=== PATIENT | male | born 1950 | race Caucasian/White ===

== ENCOUNTER 2019-01-19 12:38 | Outpatient (CLI) | payer MEDICARE ==
--- NOTE | 2019-01-19 12:57 | RAD ---
2 views chest. HISTORY: Patient with history of soft palate cancer status post chemotherapy. PA and lateral views of the chest is obtained. The lungs are well aerated. No evidence of active intrathoracic disease seen. No evidence of effusion s, pneumonia or pneumothorax seen. IMPRESSION: unremarkable 2 views chest.
== END 2019-01-19 12:39 | disposition home or self-care (01) ==
LOC: RAD 12:38
PROVIDERS: ATTEND Radiology Radiation Oncology
DX: Z08 Encounter for follow-up examination after completed treatment for malignant neoplasm (principal); Z85.818 Personal history of malignant neoplasm of other sites of lip, oral cavity, and pharynx; Z92.3 Personal history of irradiation; Z92.21 Personal history of antineoplastic chemotherapy
CPT/HCPCS: 71046; 84443

== ENCOUNTER 2021-02-14 10:37 | Outpatient (CLI) | payer MEDICARE | END 2021-02-14 10:38 | disposition home or self-care (01) | LOC: RAD 10:37 | PROVIDERS: ATTEND Psychologist Addiction (Substance Use Disorder) | DX: C05.1 Malignant neoplasm of soft palate (principal); Z92.21 Personal history of antineoplastic chemotherapy | CPT/HCPCS: 71046 ==

== ENCOUNTER 2022-02-14 08:00 | Outpatient (CLI) | payer MEDICARE | END 2022-02-14 08:01 | disposition home or self-care (01) | LOC: RAD 08:00 | PROVIDERS: ATTEND Radiology Radiation Oncology | DX: C05.1 Malignant neoplasm of soft palate (principal); N13.30 Unspecified hydronephrosis; N13.4 Hydroureter; N32.89 Other specified disorders of bladder | CPT/HCPCS: 71250; 74176 ==

== ENCOUNTER 2022-02-14 13:16 | Inpatient (IN) | payer MEDICARE ==
[2022-02-14 14:35] LABS: #Eosinphils 0.1 thou/uL (0.0-0.7); #Lymphocytes 1.9 thou/uL (1.20-3.40); #Monocytes 0.4 thou/uL (0.11-0.59); #Neutrophils 3.7 thou/uL (1.40-6.50); %Basophils 0.4 % (0.0-1.0); %Eosinophils 1.4 % (0.0-10.0); %Lymphocytes 31.6 % (21.0-51.0); %Monocytes 6.6 % (0.0-10.0); Mean Corpuscular HGB CONC 32.9 g/dL (32.0-36.0); Mean Corpuscular Hemoglobin 32.7 pg (27.0-31.0); Mean Corpuscular Volume 99.3 fL (78.0-98.0); Mean Platelet Volume 7.4 fL (7.4-10.4); Platelet Count 290 thou/uL (130-400); RBC Distribution Width 11.8 % (11.5-14.5); Red Blood Cell (RBC) Count 3.97 mill/uL (4.70-6.10); White Blood Cell (WBC) Count 6.1 thou/uL (4.8-10.8)
[2022-02-14 14:40] LABS: Bilirubin Negative (Negative); Blood, Urine Negative (Negative); Clarity Clear (Clear); Glucose, Urine (Dipstick) Normal (Negative); Ketone, Urine Negative (Negative); Leukocyte Negative Leu/uL (Negative); Nitrite Negative (Negative); Protein, Urine (Dipstick) 10 mg/dL (Neg-Trace); Specific Gravity, Urine 1.019 (1.002-1.036); Urobilinogen Normal mg/dL (Less than 2)
[2022-02-14 15:01] LABS: ALT (SGPT) 10 U/L (8-55); AST (SGOT) 15 U/L (5-34); Albumin 4.4 g/dL (3.4-4.8); Alkaline Phosphatase 41 U/L (40-110); Anion Gap 18 mmol/L (10-20); BUN (Urea Nitrogen) 26 mg/dL (8.4-25.7); Bilirubin, Total 0.6 mg/dL (0.2-1.2); Calc. Creatinine Clearance 0 mL/min (70-130); Calcium 9.4 mg/dL (7.8-10.44); Carbon Dioxide 27 mmol/L (23-31); Chloride 101 mmol/L (98-107); Globulin 2.7 g/dL (2.4-3.5); Glucose 97 mg/dL (80-115); Potassium 4.4 mmol/L (3.5-5.1); Protein, Total 7.1 g/dL (5.8-8.1); Sodium 142 mmol/L (136-145)
[2022-02-14] MEDS ORDERED: hydrALAZINE 20 MG/ML VIAL ONE (15:09)
[2022-02-14] MEDS ORDERED: Ondansetron ODT 4 MG TAB PO PRN (16:03)
[2022-02-14] MEDS ORDERED: Senokot S 8.6-50 MG TAB PO PRN (16:03)
[2022-02-14] MEDS ORDERED: Acetaminophen 650 MG Suppository PR PRN (16:03)
[2022-02-14] MEDS ORDERED: Artificial Tear Sol 15 ML BOT EA EYE PRN (16:03)
[2022-02-14] MEDS ORDERED: Ondansetron PF 4 MG/2 ML Vial IVP PRN (16:03)
[2022-02-14] MEDS ORDERED: hydrALAZINE 20 MG/ML VIAL SLOW IVP PRN (16:03)
[2022-02-14] MEDS ORDERED: Moisturizing Cream (Eucerin) 113 GM JAR TOP PRN (16:03)
[2022-02-14] MEDS ORDERED: Calcium Carbonate 500 MG ChewTAB PO PRN (16:03)
[2022-02-14] MEDS ORDERED: Labetalol HCl 100 MG/20 ML VIAL SLOW IVP PRN (16:03)
[2022-02-14] MEDS ORDERED: Amlodipine 10 MG TAB PO SCH (16:15)
[2022-02-14] MEDS ORDERED: Aspirin 325 MG TAB PO SCH (17:15)
[2022-02-14 17:35] LABS: Creatinine, Urine 95.76 mg/dL (63-166)
[2022-02-14] MEDS ORDERED: cloNIDine 0.3mg/24 Hour PATCH TD SCH (17:45)
[2022-02-14] MEDS: Sodium Chloride 0.45% 1,000 ML IV SCH (17:58)
[2022-02-14] MEDS: Acetaminophen 325 MG TAB PO PRN (17:59)
[2022-02-14] MEDS ORDERED: Polyethylene Glycol 3350 17 GM Packet PO SCH (18:00)
[2022-02-14 20:02] VITALS: BMI 21.5
[2022-02-14] MEDS: Labetalol HCl 100 MG TAB PO SCH (20:43)
[2022-02-14 20:54] LABS: Troponin I 0.036 ng/mL (< 0.028)
[2022-02-14] MEDS: Benzonatate 100 MG CAP PO PRN (22:36)
[2022-02-15] MEDS: Acetaminophen 325 MG TAB PO PRN ×2 (01:42→20:54)
[2022-02-15] MEDS: hydrOXYzine 25 MG TAB PO PRN ×2 (01:44→20:54)
[2022-02-15] MEDS: Sodium Chloride 0.45% 1,000 ML IV SCH ×2 (05:08→16:49)
[2022-02-15 06:09] LABS: Anion Gap 16 mmol/L (10-20); BUN (Urea Nitrogen) 20 mg/dL (8.4-25.7); Calc. Creatinine Clearance 43 mL/min (70-130); Calcium 9.4 mg/dL (7.8-10.44); Carbon Dioxide 23 mmol/L (23-31); Cardiac Risk 3.3 (Less than 4.5); Chloride 103 mmol/L (98-107); Cholesterol 191 mg/dl (< 200 Desired); Glucose 100 mg/dL (80-115); HDL Cholesterol 58 mg/dL (>60 Neg Risk); LDL Cholesterol, Calculated 118 mg/dL; Magnesium 1.6 mg/dL (1.6-2.6); Potassium 4.1 mmol/L (3.5-5.1); Sodium 138 mmol/L (136-145); Triglycerides 73 mg/dL (Less than 150)
[2022-02-15 06:14] LABS: Iron 45 ug/dL (65-175); Iron Binding Capacity, Total 220 mcg/dL (261-462); Phosphorus 3.5 mg/dL (2.3-4.7)
[2022-02-15 06:15] LABS: Iron 45 ug/dL (65-175); Iron Binding Capacity, Total 224 mcg/dL (261-462)
[2022-02-15] MEDS: Labetalol HCl 100 MG TAB PO SCH (08:53)
[2022-02-15] MEDS: Ferrous Sulfate 325 MG TAB PO SCH (08:53)
[2022-02-15] MEDS: NIFEdipine XL 60 MG TAB PO SCH ×2 (08:55→20:51)
[2022-02-15] MEDS: Aspirin Chewable 81 MG TAB PO SCH (08:55)
[2022-02-15] MEDS: Folic Acid 1 MG TAB PO SCH (08:55)
[2022-02-15] MEDS: Polyethylene Glycol 3350 17 GM Packet PO SCH (08:57)
[2022-02-15] MEDS ORDERED: Amlodipine 10 MG TAB PO SCH (09:00)
[2022-02-15 12:22] LABS: SARS-CoV-2 PCR by NAA Not Detected (NotDetected)
[2022-02-15] MEDS ORDERED: cloNIDine 0.1 MG TAB PO SCH (15:00)
[2022-02-15] MEDS: Benzonatate 100 MG CAP PO PRN (15:00)
[2022-02-15] MEDS ORDERED: Atorvastatin Calcium 10 MG TAB PO SCH (21:00)
[2022-02-16] MEDS: Sodium Chloride 0.45% 1,000 ML IV SCH (01:20)
[2022-02-16] MEDS: Cepastat Lozenges 1 LOZ PO PRN ×2 (01:43→08:52)
[2022-02-16] MEDS ORDERED: Levothyroxine Sodium 100 MCG TAB PO SCH (06:00)
[2022-02-16 08:00] LABS: #Eosinphils 0.2 thou/uL (0.0-0.7); #Lymphocytes 1.4 thou/uL (1.20-3.40); #Monocytes 0.4 thou/uL (0.11-0.59); #Neutrophils 8.3 thou/uL (1.40-6.50); %Basophils 0.2 % (0.0-1.0); %Eosinophils 1.6 % (0.0-10.0); %Lymphocytes 13.2 % (21.0-51.0); %Monocytes 4.2 % (0.0-10.0); %Neutrophils 80.8 % (42.0-75.0); Hemoglobin 13.6 g/dL (14.0-18.0); Mean Corpuscular HGB CONC 33.2 g/dL (32.0-36.0); Mean Corpuscular Hemoglobin 32.8 pg (27.0-31.0); Mean Platelet Volume 7.3 fL (7.4-10.4); Platelet Count 283 thou/uL (130-400); RBC Distribution Width 11.9 % (11.5-14.5); Red Blood Cell (RBC) Count 4.15 mill/uL (4.70-6.10); White Blood Cell (WBC) Count 10.2 thou/uL (4.8-10.8)
[2022-02-16 08:21] LABS: ALT (SGPT) 8 U/L (8-55); AST (SGOT) 13 U/L (5-34); Albumin 3.9 g/dL (3.4-4.8); Alkaline Phosphatase 37 U/L (40-110); Anion Gap 13 mmol/L (10-20); BUN (Urea Nitrogen) 18 mg/dL (8.4-25.7); Bilirubin, Total 0.7 mg/dL (0.2-1.2); Calc. Creatinine Clearance 46 mL/min (70-130); Carbon Dioxide 22 mmol/L (23-31); Chloride 105 mmol/L (98-107); Globulin 2.8 g/dL (2.4-3.5); Glucose 105 mg/dL (80-115); Potassium 3.9 mmol/L (3.5-5.1); Protein, Total 6.7 g/dL (5.8-8.1); Sodium 136 mmol/L (136-145)
[2022-02-16] MEDS: Ferrous Sulfate 325 MG TAB PO SCH (08:49)
[2022-02-16] MEDS: Aspirin Chewable 81 MG TAB PO SCH (08:49)
[2022-02-16] MEDS: Folic Acid 1 MG TAB PO SCH (08:51)
[2022-02-16] MEDS ORDERED: Sodium Bicarbonate Tab 325 MG TAB PO SCH (09:00)
[2022-02-16] MEDS ORDERED: Labetalol HCl 100 MG TAB PO SCH (09:00)
[2022-02-16] MEDS ORDERED: cloNIDine 0.3mg/24 Hour PATCH TD SCH (09:00)
[2022-02-16] MEDS ORDERED: Amlodipine 10 MG TAB PO SCH (09:00)
[2022-02-16] MEDS: Polyethylene Glycol 3350 17 GM Packet PO SCH (09:02)
[2022-02-16 11:17] VITALS: BP 136/76; TEMP 98
[2022-02-21] MEDS ORDERED: cloNIDine 0.3mg/24 Hour PATCH TD SCH (18:00)
== END 2022-02-16 14:51 | disposition home or self-care (01) | DRG 683 ==
LOC: ERS 13:16 → 2SW 16:06 → OBSVTOIN 17:09
PROVIDERS: ADMIT Family Medicine; ATTEND Family Medicine
DX: N17.9 Acute kidney failure, unspecified (principal); I13.0 Hypertensive heart and chronic kidney disease with heart failure and stage 1 through stage 4 chronic kidney disease, or unspecified chronic kidney disease; I50.30 Unspecified diastolic (congestive) heart failure; N13.30 Unspecified hydronephrosis; I16.0 Hypertensive urgency; I95.2 Hypotension due to drugs; R94.31 Abnormal electrocardiogram [ECG] [EKG]; T50.905A Adverse effect of unspecified drugs, medicaments and biological substances, initial encounter; D50.9 Iron deficiency anemia, unspecified; D53.9 Nutritional anemia, unspecified; R00.0 Tachycardia, unspecified; N18.9 Chronic kidney disease, unspecified; I08.3 Combined rheumatic disorders of mitral, aortic and tricuspid valves; N32.0 Bladder-neck obstruction; F41.9 Anxiety disorder, unspecified; N40.1 Benign prostatic hyperplasia with lower urinary tract symptoms; R33.8 Other retention of urine; D52.9 Folate deficiency anemia, unspecified; R13.10 Dysphagia, unspecified; E03.9 Hypothyroidism, unspecified; Z20.822 Contact with and (suspected) exposure to COVID-19; Z79.890 Hormone replacement therapy; Z79.82 Long term (current) use of aspirin; Z79.899 Other long term (current) drug therapy; Z85.89 Personal history of malignant neoplasm of other organs and systems; Z92.21 Personal history of antineoplastic chemotherapy; Z92.3 Personal history of irradiation; Z98.890 Other specified postprocedural states; Z82.49 Family history of ischemic heart disease and other diseases of the circulatory system; Z87.891 Personal history of nicotine dependence
CPT/HCPCS: 36415; 36416; 51702; 76770; 80048; 80053; 80061; 81003; 82570; 82607; 82746; 83540; 83550; 83735; 84100; 84156; 84300; 84443; 84484; 84540; 85025; 93005; 93010; 93306; 94760; 96374; J0360; U0003; U0005

== ENCOUNTER 2022-03-20 18:51 | Outpatient (CLI) | payer MEDICARE, OTHER | END 2022-03-20 18:52 | disposition home or self-care (01) | LOC: LABBT 18:51 | PROVIDERS: ATTEND Urology | DX: N40.1 Benign prostatic hyperplasia with lower urinary tract symptoms (principal); Z20.822 Contact with and (suspected) exposure to COVID-19 | CPT/HCPCS: U0003; U0005 ==

== ENCOUNTER 2022-03-23 08:52 | Day surgery (SDC) | payer MEDICARE, OTHER ==
[2022-03-21 09:05] VITALS: BMI 21.3
[2022-03-23] MEDS ORDERED: Levofloxacin 500 mg/D5W 100 ml Premix Bag ONE (10:46)
[2022-03-23] MEDS ORDERED: Lidocaine 1% MPF 2 ML VIAL ONE (10:46)
[2022-03-23] MEDS ORDERED: Famotidine/PF 20 mg/2ml Vial ONE (11:45)
[2022-03-23] MEDS ORDERED: SUGAMMADEX SODIUM 200 MG/2 ML VIAL ONE (11:45)
[2022-03-23] MEDS ORDERED: fentaNYL Citrate/PF 100 MCG/2 ML SYRINGE ONE (11:45)
[2022-03-23] MEDS ORDERED: Ketorolac Tromethamine 30 MG/ML VIAL ONE (13:31)
[2022-03-23] MEDS ORDERED: Oxybutynin 5 MG TAB ONE (13:32)
[2022-03-23] MEDS ORDERED: Phenazopyridine HCl 100 MG TAB ONE (13:32)
== END 2022-03-23 15:01 | disposition home or self-care (01) ==
LOC: SDC 08:52
PROVIDERS: ATTEND Urology
PROC: 0VT08ZZ Resection of Prostate, Via Natural or Artificial Opening Endoscopic (ICD-10-PCS; principal; 2022-03-23)
DX: N40.1 Benign prostatic hyperplasia with lower urinary tract symptoms (principal); N41.1 Chronic prostatitis; N13.8 Other obstructive and reflux uropathy; N32.3 Diverticulum of bladder; N32.89 Other specified disorders of bladder; R33.8 Other retention of urine; Z79.82 Long term (current) use of aspirin; Z79.890 Hormone replacement therapy; Z79.899 Other long term (current) drug therapy
CPT/HCPCS: 88305; J1885; J1956; S0028; U0003; U0005

== ENCOUNTER 2022-07-25 20:40 | Inpatient (IN) | payer MEDICARE, OTHER ==
[~2022-07-25 20:40] MED LIST: Iopamidol-370 76% 500 ML 1 ML ONE
[2022-07-25] MEDS ORDERED: Sodium Chloride For Inhalation 0.9% 3 ML NEB ONE (21:44)
[2022-07-25 21:51] LABS: #Eosinphils 0.1 thou/uL (0.0-0.7); #Monocytes 0.8 thou/uL (0.11-0.59); #Neutrophils 15.1 thou/uL (1.40-6.50); %Basophils 0.1 % (0.0-1.0); %Eosinophils 0.4 % (0.0-10.0); %Lymphocytes 5.9 % (21.0-51.0); %Monocytes 4.6 % (0.0-10.0); ALT (SGPT) 22 U/L (8-55); AST (SGOT) 21 U/L (5-34); Albumin 2.7 g/dL (3.4-4.8); Alkaline Phosphatase 28 U/L (40-110); Anion Gap 14 mmol/L (10-20); BUN (Urea Nitrogen) 61 mg/dL (8.4-25.7); Bilirubin, Total 0.3 mg/dL (0.2-1.2); Calc. Creatinine Clearance 0 mL/min (70-130); Calcium 8.2 mg/dL (7.8-10.44); Carbon Dioxide 31 mmol/L (23-31); Chloride 94 mmol/L (98-107); Estimated GFR 58; Globulin 2.3 g/dL (2.4-3.5); Glucose 207 mg/dL (80-115); Hemoglobin 5.8 g/dL (14.0-18.0); Mean Corpuscular Hemoglobin 31.7 pg (27.0-31.0); Mean Corpuscular Volume 99.2 fL (78.0-98.0); Mean Platelet Volume 7.6 fL (7.4-10.4); Platelet Count 475 thou/uL (130-400); RBC Distribution Width 11.9 % (11.5-14.5); Red Blood Cell (RBC) Count 1.82 mill/uL (4.70-6.10); Sodium 135 mmol/L (136-145); White Blood Cell (WBC) Count 16.9 thou/uL (4.8-10.8)
[2022-07-26 00:17] LABS: Lactic Acid 3.6 mmol/L (0.5-2.2)
[2022-07-26] MEDS ORDERED: Sodium Chloride 0.9% 15 ML NEB ONE (01:24)
[2022-07-26 02:56] LABS: #Eosinphils 0.1 thou/uL (0.0-0.7); #Monocytes 0.6 thou/uL (0.11-0.59); #Neutrophils 14.5 thou/uL (1.40-6.50); %Basophils 0.2 % (0.0-1.0); %Eosinophils 0.5 % (0.0-10.0); %Lymphocytes 6.2 % (21.0-51.0); %Monocytes 3.7 % (0.0-10.0); %Neutrophils 89.4 % (42.0-75.0); Hemoglobin 5.9 g/dL (14.0-18.0); Mean Corpuscular HGB CONC 33.8 g/dL (32.0-36.0); Mean Corpuscular Hemoglobin 32.4 pg (27.0-31.0); Mean Corpuscular Volume 95.9 fL (78.0-98.0); Mean Platelet Volume 7.5 fL (7.4-10.4); Platelet Count 343 thou/uL (130-400); RBC Distribution Width 12.7 % (11.5-14.5); Red Blood Cell (RBC) Count 1.81 mill/uL (4.70-6.10); White Blood Cell (WBC) Count 16.2 thou/uL (4.8-10.8)
[2022-07-26 03:51] LABS: INR-International Normal Ratio 1.5; Prothrombin Time 18.3 sec (12.0-14.7)
[2022-07-26] MEDS: Cefepime 1 GM in Sodium Chloride 0.9% 100 ML IVPB SCH ×2 (03:51→16:03)
[2022-07-26 03:52] LABS: PTT 36.4 sec (22.9-36.1)
[2022-07-26] MEDS ORDERED: Pantoprazole 40 MG VIAL IVP SCH (04:00)
[2022-07-26 04:06] LABS: Anion Gap 12 mmol/L (10-20); BUN (Urea Nitrogen) 63 mg/dL (8.4-25.7); Calc. Creatinine Clearance 60 mL/min (70-130); Carbon Dioxide 30 mmol/L (23-31); Chloride 98 mmol/L (98-107); Potassium 4.1 mmol/L (3.5-5.1); Sodium 136 mmol/L (136-145)
[2022-07-26 04:07] LABS: Calcium 7.8 mg/dL (7.8-10.44); Estimated GFR 68; Glucose 148 mg/dL (80-115)
[2022-07-26] MEDS ORDERED: Vancomycin 1.5 GRAM/300 ML BAG 1.5 GM in Premix Bag 1 BAG IVPB SCH (05:00)
[2022-07-26] MEDS ORDERED: Morphine 4 MG/ML VIAL SLOW IVP SCH (05:00)
[2022-07-26 05:57] LABS: Lactic Acid 1.6 mmol/L (0.5-2.2)
[2022-07-26 07:27] LABS: Hemoglobin 6.9 g/dL (14.0-18.0)
[2022-07-26 07:37] LABS: INR-International Normal Ratio 1.3; PTT 32.4 sec (22.9-36.1); Prothrombin Time 16.3 sec (12.0-14.7)
[2022-07-26] MEDS: Pantoprazole 40 MG VIAL IVP SCH ×2 (09:06→20:35)
[2022-07-26 12:47] LABS: Hemoglobin 6.5 g/dL (14.0-18.0)
[2022-07-26] MEDS ORDERED: PROPOFOL 40 ML ONE (13:35)
[2022-07-26] MEDS ORDERED: Ketamine 50 MG/ML (10ML VIAL) ONE (13:35)
[2022-07-26] MEDS ORDERED: Phenylephrine 10 MG/ML VIAL ONE (13:52)
[2022-07-26] MEDS ORDERED: Promethazine HCl 25 MG/ML VIAL IVPB PRN (14:47)
[2022-07-26] MEDS ORDERED: Promethazine HCl 25 MG/ML VIAL IM PRN (14:47)
[2022-07-26] MEDS ORDERED: Ondansetron HCl/PF 4 MG/2 ML Vial IVP PRN (14:47)
[2022-07-26] MEDS: Vancomycin 1 GM in Premix Bag 1 BAG IVPB SCH (17:13)
[2022-07-26] MEDS: Morphine 2 MG/ML VIAL SLOW IVP PRN (17:13)
[2022-07-26 20:45] LABS: Hemoglobin 8.2 g/dL (14.0-18.0)
[2022-07-27] MEDS: Morphine 2 MG/ML VIAL SLOW IVP PRN ×3 (01:11→16:38)
[2022-07-27 04:15] LABS: Anion Gap 5 mmol/L (10-20); BUN (Urea Nitrogen) 51 mg/dL (8.4-25.7); Calc. Creatinine Clearance 62 mL/min (70-130); Calcium 7.9 mg/dL (7.8-10.44); Carbon Dioxide 33 mmol/L (23-31); Chloride 107 mmol/L (98-107); Estimated GFR 71; Glucose 130 mg/dL (80-115); Potassium 3.9 mmol/L (3.5-5.1); Sodium 141 mmol/L (136-145)
[2022-07-27] MEDS: Cefepime 1 GM in Sodium Chloride 0.9% 100 ML IVPB SCH (04:22)
[2022-07-27 04:44] LABS: #Eosinphils 0.2 thou/uL (0.0-0.7); #Lymphocytes 1.4 thou/uL (1.20-3.40); #Monocytes 0.9 thou/uL (0.11-0.59); #Neutrophils 10.9 thou/uL (1.40-6.50); %Basophils 0.1 % (0.0-1.0); %Eosinophils 1.6 % (0.0-10.0); %Lymphocytes 10.5 % (21.0-51.0); %Monocytes 6.5 % (0.0-10.0); %Neutrophils 81.4 % (42.0-75.0); Hemoglobin 7.6 g/dL (14.0-18.0); Mean Corpuscular HGB CONC 33.7 g/dL (32.0-36.0); Mean Corpuscular Hemoglobin 30.6 pg (27.0-31.0); Mean Corpuscular Volume 90.9 fL (78.0-98.0); Mean Platelet Volume 7.9 fL (7.4-10.4); Platelet Count 294 thou/uL (130-400); RBC Distribution Width 13.9 % (11.5-14.5); Red Blood Cell (RBC) Count 2.47 mill/uL (4.70-6.10); White Blood Cell (WBC) Count 13.4 thou/uL (4.8-10.8)
[2022-07-27] MEDS: Vancomycin 1 GM in Premix Bag 1 BAG IVPB SCH (05:48)
[2022-07-27 08:23] LABS: Hemoglobin 7.9 g/dL (14.0-18.0)
[2022-07-27] MEDS ORDERED: FLU VACC QS2022-23(65YR UP)/PF 240 MCG/0.7 ML SYRINGE IM ONE (09:00)
[2022-07-27] MEDS: Acetaminophen 325 MG TAB PER TUBE PRN (09:19)
[2022-07-27] MEDS: Pantoprazole 40 MG VIAL IVP SCH ×2 (09:19→21:02)
[2022-07-27] MEDS: Cefdinir 300 MG CAP PO SCH ×2 (09:19→21:02)
[2022-07-27 14:15] LABS: Hemoglobin 7.5 g/dL (14.0-18.0)
[2022-07-27 17:13] LABS: Vancomycin, Trough 22.5 ug/mL
[2022-07-28] MEDS: Morphine 2 MG/ML VIAL SLOW IVP PRN ×3 (01:28→20:21)
[2022-07-28 04:17] LABS: Anion Gap 10 mmol/L (10-20); BUN (Urea Nitrogen) 35 mg/dL (8.4-25.7); Calc. Creatinine Clearance 70 mL/min (70-130); Calcium 8.2 mg/dL (7.8-10.44); Carbon Dioxide 28 mmol/L (23-31); Chloride 106 mmol/L (98-107); Estimated GFR 82; Glucose 119 mg/dL (80-115); Potassium 3.6 mmol/L (3.5-5.1); Sodium 140 mmol/L (136-145)
[2022-07-28 04:29] LABS: Band 6 % (5-11); Eosinophils 1 % (0-10); Hemoglobin 7.8 g/dL (14.0-18.0); Lymphocytes 10 % (21-51); MDiff Complete? YES; Mean Corpuscular HGB CONC 33.6 g/dL (32.0-36.0); Mean Corpuscular Hemoglobin 31.1 pg (27.0-31.0); Mean Corpuscular Volume 92.8 fL (78.0-98.0); Mean Platelet Volume 7.5 fL (7.4-10.4); Monocytes 2 % (0-10); Myelocyte 2 % (0-0); Neutrophil 79 % (42-75); Nucleated RBC 2 % (0); Platelet Count 333 thou/uL (130-400); Polychromasia SLIGHT = 2-3 cells (100X) (0-2/hpf); RBC Distribution Width 13.8 % (11.5-14.5); Red Blood Cell (RBC) Count 2.49 mill/uL (4.70-6.10); White Blood Cell (WBC) Count 12.3 thou/uL (4.8-10.8)
[2022-07-28] MEDS: Cefdinir 300 MG CAP PO SCH ×2 (11:17→20:10)
[2022-07-28] MEDS: Pantoprazole 40 MG VIAL IVP SCH ×2 (11:17→20:10)
[2022-07-28] MEDS: Acetaminophen 325 MG TAB PER TUBE PRN (12:54)
[2022-07-28] MEDS: Scopolamine 1.5 mg/72 hour Patch TD SCH (12:54)
[2022-07-29] MEDS: Morphine 2 MG/ML VIAL SLOW IVP PRN ×4 (02:02→21:37)
[2022-07-29 03:55] LABS: #Eosinphils 0.2 thou/uL (0.0-0.7); #Lymphocytes 1.2 thou/uL (1.20-3.40); #Monocytes 0.6 thou/uL (0.11-0.59); %Basophils 0.2 % (0.0-1.0); %Eosinophils 1.7 % (0.0-10.0); %Lymphocytes 10.7 % (21.0-51.0); %Monocytes 5.2 % (0.0-10.0); %Neutrophils 82.4 % (42.0-75.0); Hemoglobin 7.6 g/dL (14.0-18.0); Mean Corpuscular HGB CONC 32.8 g/dL (32.0-36.0); Mean Corpuscular Hemoglobin 31.1 pg (27.0-31.0); Mean Corpuscular Volume 94.5 fL (78.0-98.0); Mean Platelet Volume 7.7 fL (7.4-10.4); Platelet Count 355 thou/uL (130-400); RBC Distribution Width 13.7 % (11.5-14.5); Red Blood Cell (RBC) Count 2.45 mill/uL (4.70-6.10); White Blood Cell (WBC) Count 10.9 thou/uL (4.8-10.8)
[2022-07-29] MEDS: Acetaminophen 325 MG TAB PER TUBE PRN (06:22)
[2022-07-29] MEDS: Pantoprazole 40 MG VIAL IVP SCH ×2 (09:47→20:05)
[2022-07-29] MEDS: Cefdinir 300 MG CAP PO SCH ×2 (09:47→20:03)
[2022-07-29] MEDS: Heparin 5,000 UNITS/ML VIAL SC SCH ×2 (14:47→20:03)
[2022-07-30] MEDS: Morphine 2 MG/ML VIAL SLOW IVP PRN ×3 (03:34→22:07)
[2022-07-30 04:02] LABS: #Eosinphils 0.2 thou/uL (0.0-0.7); #Lymphocytes 1.3 thou/uL (1.20-3.40); #Monocytes 0.5 thou/uL (0.11-0.59); #Neutrophils 9.6 thou/uL (1.40-6.50); %Basophils 0.1 % (0.0-1.0); %Eosinophils 1.9 % (0.0-10.0); Hemoglobin 8.4 g/dL (14.0-18.0); Mean Corpuscular Hemoglobin 31.8 pg (27.0-31.0); Mean Corpuscular Volume 93.8 fL (78.0-98.0); Mean Platelet Volume 7.4 fL (7.4-10.4); Platelet Count 409 thou/uL (130-400); RBC Distribution Width 13.8 % (11.5-14.5); Red Blood Cell (RBC) Count 2.64 mill/uL (4.70-6.10); White Blood Cell (WBC) Count 11.5 thou/uL (4.8-10.8)
[2022-07-30 04:24] LABS: Anion Gap 10 mmol/L (10-20); BUN (Urea Nitrogen) 20 mg/dL (8.4-25.7); Calc. Creatinine Clearance 70 mL/min (70-130); Calcium 8.5 mg/dL (7.8-10.44); Carbon Dioxide 30 mmol/L (23-31); Chloride 103 mmol/L (98-107); Estimated GFR 83; Glucose 120 mg/dL (80-115); Potassium 3.8 mmol/L (3.5-5.1); Sodium 139 mmol/L (136-145)
[2022-07-30] MEDS: Cefdinir 300 MG CAP PO SCH ×2 (08:12→21:32)
[2022-07-30] MEDS: Pantoprazole 40 MG VIAL IVP SCH ×2 (08:12→21:33)
[2022-07-30] MEDS: Heparin 5,000 UNITS/ML VIAL SC SCH ×3 (08:12→21:34)
[2022-07-30] MEDS: Acetaminophen 325 MG TAB PER TUBE PRN (14:09)
[2022-07-30] MEDS ORDERED: BIOTENE MOUTH SPRAY 44.3 ML MM PRN (16:09)
[2022-07-30 16:32] VITALS: BMI 20.2
[2022-07-30] MEDS: GUAIFENESIN SF SOLN 200 MG/10 ML UDCUP PER TUBE SCH (21:32)
[2022-07-31] MEDS: Acetaminophen 325 MG TAB PER TUBE PRN ×3 (01:01→18:18)
[2022-07-31 03:50] LABS: #Eosinphils 0.3 thou/uL (0.0-0.7); #Lymphocytes 1.3 thou/uL (1.20-3.40); #Monocytes 0.5 thou/uL (0.11-0.59); #Neutrophils 7.9 thou/uL (1.40-6.50); %Basophils 0.3 % (0.0-1.0); %Eosinophils 2.5 % (0.0-10.0); %Lymphocytes 13.3 % (21.0-51.0); %Monocytes 4.9 % (0.0-10.0); Hemoglobin 7.7 g/dL (14.0-18.0); Mean Corpuscular HGB CONC 32.5 g/dL (32.0-36.0); Mean Corpuscular Hemoglobin 30.8 pg (27.0-31.0); Mean Corpuscular Volume 94.6 fl (78.0-98.0); Mean Platelet Volume 7.4 fL (7.4-10.4); Platelet Count 394 thou/uL (130-400); RBC Distribution Width 14.2 % (11.5-14.5); Red Blood Cell (RBC) Count 2.49 mill/uL (4.70-6.10)
[2022-07-31 04:05] LABS: Anion Gap 11 mmol/L (10-20); BUN (Urea Nitrogen) 22 mg/dL (8.4-25.7); Calc. Creatinine Clearance 62 mL/min (70-130); Calcium 8.1 mg/dL (7.8-10.44); Carbon Dioxide 30 mmol/L (23-31); Chloride 102 mmol/L (98-107); Estimated GFR 71; Glucose 140 mg/dL (80-115); Magnesium 1.9 mg/dL (1.6-2.6); Phosphorus 3.6 mg/dL (2.3-4.7); Potassium 4.4 mmol/L (3.5-5.1); Sodium 139 mmol/L (136-145)
[2022-07-31] MEDS: Levothyroxine Sodium 75 MCG TAB PER TUBE SCH (06:06)
[2022-07-31] MEDS: Morphine 2 MG/ML VIAL SLOW IVP PRN (07:59)
[2022-07-31] MEDS: Pantoprazole 40 MG VIAL IVP SCH ×2 (09:16→21:30)
[2022-07-31] MEDS: GUAIFENESIN SF SOLN 200 MG/10 ML UDCUP PER TUBE SCH ×4 (09:16→21:30)
[2022-07-31] MEDS: Heparin 5,000 UNITS/ML VIAL SC SCH ×3 (09:16→21:30)
[2022-07-31] MEDS: Cefdinir 300 MG CAP PO SCH ×2 (09:16→21:30)
[2022-07-31] MEDS: Scopolamine 1.5 mg/72 hour Patch TD SCH (11:10)
[2022-07-31] MEDS ORDERED: Senokot S 8.6-50 MG TAB PO PRN (11:46)
[2022-07-31] MEDS: Ondansetron PF 4 MG/2 ML Vial IVP PRN (12:01)
[2022-07-31] MEDS: Morphine 4 MG/ML VIAL SLOW IVP PRN ×2 (14:33→23:02)
[2022-08-01] MEDS: Morphine 4 MG/ML VIAL SLOW IVP PRN ×3 (03:10→21:57)
[2022-08-01 04:03] LABS: #Eosinphils 0.3 thou/uL (0.0-0.7); #Monocytes 0.4 thou/uL (0.11-0.59); %Basophils 0.1 % (0.0-1.0); %Eosinophils 4.2 % (0.0-10.0); %Lymphocytes 12.4 % (21.0-51.0); %Neutrophils 78.2 % (42.0-75.0); Hemoglobin 7.7 g/dL (14.0-18.0); Mean Corpuscular HGB CONC 32.2 g/dL (32.0-36.0); Mean Corpuscular Hemoglobin 30.9 pg (27.0-31.0); Mean Platelet Volume 7.7 fL (7.4-10.4); Platelet Count 429 thou/uL (130-400); RBC Distribution Width 14.1 % (11.5-14.5); Red Blood Cell (RBC) Count 2.49 mill/uL (4.70-6.10); White Blood Cell (WBC) Count 7.7 thou/uL (4.8-10.8)
[2022-08-01 04:55] LABS: Anion Gap 11 mmol/L (10-20); BUN (Urea Nitrogen) 21 mg/dL (8.4-25.7); Calc. Creatinine Clearance 69 mL/min (70-130); Calcium 8.2 mg/dL (7.8-10.44); Carbon Dioxide 30 mmol/L (23-31); Chloride 100 mmol/L (98-107); Estimated GFR 80; Glucose 110 mg/dL (80-115); Potassium 4.2 mmol/L (3.5-5.1); Sodium 137 mmol/L (136-145)
[2022-08-01] MEDS: Levothyroxine Sodium 75 MCG TAB PER TUBE SCH (06:36)
[2022-08-01] MEDS: Acetaminophen 325 MG TAB PER TUBE PRN ×2 (06:36→13:35)
[2022-08-01] MEDS: Pantoprazole 40 MG VIAL IVP SCH ×2 (08:28→21:57)
[2022-08-01] MEDS: GUAIFENESIN SF SOLN 200 MG/10 ML UDCUP PER TUBE SCH ×4 (08:28→21:56)
[2022-08-01] MEDS: Cefdinir 300 MG CAP PO SCH ×2 (08:28→21:56)
[2022-08-01] MEDS: Heparin 5,000 UNITS/ML VIAL SC SCH ×3 (08:28→21:57)
[2022-08-02] MEDS: Morphine 4 MG/ML VIAL SLOW IVP PRN ×4 (02:03→20:55)
[2022-08-02 05:16] LABS: #Eosinphils 0.2 thou/uL (0.0-0.7); #Lymphocytes 1.1 thou/uL (1.20-3.40); #Monocytes 0.5 thou/uL (0.11-0.59); #Neutrophils 6.6 thou/uL (1.40-6.50); %Basophils 0.2 % (0.0-1.0); %Eosinophils 2.4 % (0.0-10.0); %Lymphocytes 12.8 % (21.0-51.0); %Monocytes 5.9 % (0.0-10.0); %Neutrophils 78.7 % (42.0-75.0); Hemoglobin 8.2 g/dL (14.0-18.0); Mean Corpuscular HGB CONC 32.5 g/dL (32.0-36.0); Mean Corpuscular Hemoglobin 31.5 pg (27.0-31.0); Mean Corpuscular Volume 96.9 fl (78.0-98.0); Mean Platelet Volume 7.2 fL (7.4-10.4); Platelet Count 488 thou/uL (130-400); RBC Distribution Width 13.8 % (11.5-14.5); White Blood Cell (WBC) Count 8.4 thou/uL (4.8-10.8)
[2022-08-02 05:20] LABS: Anion Gap 10 mmol/L (10-20); BUN (Urea Nitrogen) 18 mg/dL (8.4-25.7); Calc. Creatinine Clearance 64 mL/min (70-130); Calcium 8.2 mg/dL (7.8-10.44); Carbon Dioxide 31 mmol/L (23-31); Chloride 98 mmol/L (98-107); Estimated GFR 73; Glucose 146 mg/dL (80-115); Potassium 4.6 mmol/L (3.5-5.1); Sodium 134 mmol/L (136-145)
[2022-08-02] MEDS: Levothyroxine Sodium 75 MCG TAB PER TUBE SCH (05:26)
[2022-08-02] MEDS: GUAIFENESIN SF SOLN 200 MG/10 ML UDCUP PER TUBE SCH ×4 (10:21→20:56)
[2022-08-02] MEDS: Pantoprazole 40 MG VIAL IVP SCH ×2 (10:22→21:18)
[2022-08-02] MEDS: Heparin 5,000 UNITS/ML VIAL SC SCH ×3 (10:22→20:56)
[2022-08-02] MEDS: Cefdinir 300 MG CAP PO SCH ×2 (10:22→20:56)
[2022-08-02] MEDS ORDERED: Polyethylene Glycol 3350 17 GM Packet PER TUBE SCH (16:15)
[2022-08-03] MEDS: Morphine 4 MG/ML VIAL SLOW IVP PRN ×3 (00:51→12:00)
[2022-08-03] MEDS: Levothyroxine Sodium 75 MCG TAB PER TUBE SCH (05:59)
[2022-08-03] MEDS: Heparin 5,000 UNITS/ML VIAL SC SCH ×3 (08:59→21:33)
[2022-08-03] MEDS: Cefdinir 300 MG CAP PO SCH ×2 (08:59→21:32)
[2022-08-03] MEDS: GUAIFENESIN SF SOLN 200 MG/10 ML UDCUP PER TUBE SCH ×4 (08:59→21:32)
[2022-08-03] MEDS: Pantoprazole 40 MG VIAL IVP SCH ×2 (08:59→21:33)
[2022-08-03] MEDS: Scopolamine 1.5 mg/72 hour Patch TD SCH (12:06)
[2022-08-03] MEDS: Acetaminophen 325 MG TAB PER TUBE PRN ×3 (13:41→21:56)
[2022-08-03] MEDS: Ondansetron PF 4 MG/2 ML Vial IVP PRN (22:32)
[2022-08-04] MEDS: Morphine 4 MG/ML VIAL SLOW IVP PRN ×5 (01:27→23:31)
[2022-08-04 05:14] LABS: #Eosinphils 0.2 thou/uL (0.0-0.7); #Lymphocytes 1.2 thou/uL (1.20-3.40); #Monocytes 0.5 thou/uL (0.11-0.59); #Neutrophils 5.2 thou/uL (1.40-6.50); %Basophils 0.3 % (0.0-1.0); %Eosinophils 2.5 % (0.0-10.0); %Lymphocytes 16.6 % (21.0-51.0); %Monocytes 6.5 % (0.0-10.0); %Neutrophils 74.1 % (42.0-75.0); Hemoglobin 8.2 g/dL (14.0-18.0); Mean Corpuscular HGB CONC 31.9 g/dL (32.0-36.0); Mean Corpuscular Hemoglobin 30.4 pg (27.0-31.0); Mean Corpuscular Volume 95.4 fl (78.0-98.0); Mean Platelet Volume 6.9 fL (7.4-10.4); Platelet Count 469 thou/uL (130-400); RBC Distribution Width 13.9 % (11.5-14.5)
[2022-08-04] MEDS: Acetaminophen 325 MG TAB PER TUBE PRN ×3 (05:34→22:09)
[2022-08-04 05:56] LABS: Anion Gap 12 mmol/L (10-20); BUN (Urea Nitrogen) 21 mg/dL (8.4-25.7); Calc. Creatinine Clearance 60 mL/min (70-130); Calcium 8.5 mg/dL (7.8-10.44); Carbon Dioxide 30 mmol/L (23-31); Chloride 96 mmol/L (98-107); Estimated GFR 67; Glucose 135 mg/dL (80-115); Potassium 4.5 mmol/L (3.5-5.1); Sodium 133 mmol/L (136-145)
[2022-08-04] MEDS: Levothyroxine Sodium 75 MCG TAB PER TUBE SCH (06:59)
[2022-08-04] MEDS: Pantoprazole 40 MG VIAL IVP SCH ×2 (09:56→20:46)
[2022-08-04] MEDS: Cefdinir 300 MG CAP PO SCH ×2 (09:56→20:45)
[2022-08-04] MEDS: GUAIFENESIN SF SOLN 200 MG/10 ML UDCUP PER TUBE SCH ×4 (09:57→20:45)
[2022-08-04] MEDS: Heparin 5,000 UNITS/ML VIAL SC SCH ×3 (09:57→20:45)
[2022-08-04] MEDS: Ondansetron PF 4 MG/2 ML Vial IVP PRN (16:13)
[2022-08-05] MEDS: Levothyroxine Sodium 75 MCG TAB PER TUBE SCH (05:40)
[2022-08-05] MEDS: Morphine 4 MG/ML VIAL SLOW IVP PRN ×2 (05:52→15:04)
[2022-08-05 05:58] LABS: #Eosinphils 0.1 thou/uL (0.0-0.7); #Lymphocytes 1.5 thou/uL (1.20-3.40); #Monocytes 0.6 thou/uL (0.11-0.59); #Neutrophils 5.7 thou/uL (1.40-6.50); %Basophils 0.2 % (0.0-1.0); %Eosinophils 1.8 % (0.0-10.0); %Monocytes 7.2 % (0.0-10.0); %Neutrophils 71.9 % (42.0-75.0); Hemoglobin 8.5 g/dL (14.0-18.0); Mean Corpuscular HGB CONC 30.9 g/dL (32.0-36.0); Mean Corpuscular Hemoglobin 29.6 pg (27.0-31.0); Mean Platelet Volume 7.5 fL (7.4-10.4); Platelet Count 541 thou/uL (130-400); RBC Distribution Width 14.1 % (11.5-14.5); Red Blood Cell (RBC) Count 2.87 mill/uL (4.70-6.10); White Blood Cell (WBC) Count 7.9 thou/uL (4.8-10.8)
[2022-08-05 06:14] LABS: Anion Gap 14 mmol/L (10-20); BUN (Urea Nitrogen) 21 mg/dL (8.4-25.7); Calc. Creatinine Clearance 56 mL/min (70-130); Calcium 8.8 mg/dL (7.8-10.44); Carbon Dioxide 29 mmol/L (23-31); Chloride 95 mmol/L (98-107); Estimated GFR 62; Glucose 128 mg/dL (80-115); Potassium 4.7 mmol/L (3.5-5.1); Sodium 133 mmol/L (136-145)
[2022-08-05 07:54] VITALS: BP 160/79; TEMP 99
[2022-08-05] MEDS: Pantoprazole 40 MG VIAL IVP SCH (09:37)
[2022-08-05] MEDS: GUAIFENESIN SF SOLN 200 MG/10 ML UDCUP PER TUBE SCH ×2 (09:37→14:46)
[2022-08-05] MEDS: Cefdinir 300 MG CAP PO SCH (09:37)
[2022-08-05] MEDS: Acetaminophen 325 MG TAB PER TUBE PRN (09:37)
[2022-08-05] MEDS: Heparin 5,000 UNITS/ML VIAL SC SCH ×2 (09:38→14:46)
[2022-08-05 16:29] LABS: SARS-CoV-2 NAA Rapid Test Not Detected (NotDetected)
== END 2022-08-05 17:30 | DRG 393 ==
LOC: ERS 20:40 → IMCU/EMU 23:06 → MSONC 08-01 16:47
PROVIDERS: ADMIT Internal Medicine; ATTEND Family Medicine
PROC: 30233N1 Transfusion of Nonautologous Red Blood Cells into Peripheral Vein, Percutaneous Approach (ICD-10-PCS; principal; 2022-07-25)
PROC: 0DW68UZ Revision of Feeding Device in Stomach, Via Natural or Artificial Opening Endoscopic (ICD-10-PCS; 2022-07-26)
DX: K94.21 Gastrostomy hemorrhage (principal); I26.93 Single subsegmental thrombotic pulmonary embolism without acute cor pulmonale; J69.0 Pneumonitis due to inhalation of food and vomit; K21.01 Gastro-esophageal reflux disease with esophagitis, with bleeding; K25.4 Chronic or unspecified gastric ulcer with hemorrhage; K26.4 Chronic or unspecified duodenal ulcer with hemorrhage; N17.9 Acute kidney failure, unspecified; D62 Acute posthemorrhagic anemia; E87.20 Acidosis, unspecified; E44.0 Moderate protein-calorie malnutrition; E87.1 Hypo-osmolality and hyponatremia; C32.1 Malignant neoplasm of supraglottis; E03.9 Hypothyroidism, unspecified; D72.829 Elevated white blood cell count, unspecified; Z20.822 Contact with and (suspected) exposure to COVID-19; I12.9 Hypertensive chronic kidney disease with stage 1 through stage 4 chronic kidney disease, or unspecified chronic kidney disease; N18.2 Chronic kidney disease, stage 2 (mild); E77.8 Other disorders of glycoprotein metabolism; Z86.73 Personal history of transient ischemic attack (TIA), and cerebral infarction without residual deficits; Z79.890 Hormone replacement therapy; Z79.82 Long term (current) use of aspirin; Z79.2 Long term (current) use of antibiotics; Z79.899 Other long term (current) drug therapy; Z87.891 Personal history of nicotine dependence; Z92.3 Personal history of irradiation; Z92.21 Personal history of antineoplastic chemotherapy; Y83.3 Surgical operation with formation of external stoma as the cause of abnormal reaction of the patient, or of later complication, without mention of misadventure at the time of the procedure
CPT/HCPCS: 36415; 36430; 70491; 71275; 80048; 80202; 82274; 83605; 83735; 83880; 84100; 84484; 85025; 85610; 85730; 86850; 86900; 86901; 87040; 93970; 94640; 97139; A4218; C9113; J0692; J1644; J2270; J2370; J2405; J2704; J3370; J3490; J7620; P9016; Q9967; U0002

== ENCOUNTER 2022-08-09 06:54 | Emergency (ER) | payer MEDICARE, OTHER ==
[2022-08-09 09:27] LABS: #Lymphocytes 0.8 thou/uL (1.20-3.40); #Monocytes 0.4 thou/uL (0.11-0.59); #Neutrophils 7.5 thou/uL (1.40-6.50); %Basophils 0.2 % (0.0-1.0); %Eosinophils 0.5 % (0.0-10.0); %Lymphocytes 8.9 % (21.0-51.0); %Monocytes 4.9 % (0.0-10.0); %Neutrophils 85.5 % (42.0-75.0); Hemoglobin 8.3 g/dL (14.0-18.0); Mean Corpuscular HGB CONC 32.5 g/dL (32.0-36.0); Mean Corpuscular Hemoglobin 30.7 pg (27.0-31.0); Mean Corpuscular Volume 94.4 fl (78.0-98.0); Mean Platelet Volume 6.9 fL (7.4-10.4); Platelet Count 461 thou/uL (130-400); RBC Distribution Width 13.8 % (11.5-14.5); Red Blood Cell (RBC) Count 2.69 mill/uL (4.70-6.10); White Blood Cell (WBC) Count 8.8 thou/uL (4.8-10.8)
[2022-08-09 09:50] LABS: ALT (SGPT) 13 U/L (8-55); AST (SGOT) 14 U/L (5-34); Albumin 3.1 g/dL (3.4-4.8); Alkaline Phosphatase 36 U/L (40-110); Anion Gap 14 mmol/L (10-20); BUN (Urea Nitrogen) 27 mg/dL (8.4-25.7); Bilirubin, Total 0.6 mg/dL (0.2-1.2); Calc. Creatinine Clearance 0 mL/min (70-130); Calcium 8.8 mg/dL (7.8-10.44); Carbon Dioxide 30 mmol/L (23-31); Chloride 91 mmol/L (98-107); Estimated GFR 59; Globulin 3.1 g/dL (2.4-3.5); Glucose 121 mg/dL (80-115); Protein, Total 6.2 g/dL (5.8-8.1); Sodium 131 mmol/L (136-145)
== END 2022-08-09 14:28 ==
LOC: ERS 06:54
DX: J95.00 Unspecified tracheostomy complication (principal)
CPT/HCPCS: 36415; 71045; 93005; 99283

== ENCOUNTER 2022-08-09 12:30 | Emergency (ER) | payer MEDICARE, OTHER | END 2022-08-09 12:42 | disposition home or self-care (01) | LOC: ERS 12:30 | DX: J95.03 Malfunction of tracheostomy stoma (principal); D63.8 Anemia in other chronic diseases classified elsewhere; J18.9 Pneumonia, unspecified organism; I10 Essential (primary) hypertension | CPT/HCPCS: 93005 ==

== ENCOUNTER 2022-08-11 12:07 | Emergency (ER) | payer MEDICARE, OTHER ==
[~2022-08-11 12:07] MED LIST changes: +Iopamidol 300 61% 100 ML VIAL FS ONE; -Iopamidol-370 76% 500 ML 1 ML ONE
[2022-08-11 13:38] LABS: #Eosinphils 0.2 thou/uL (0.0-0.7); #Lymphocytes 0.9 thou/uL (1.20-3.40); #Monocytes 0.5 thou/uL (0.11-0.59); #Neutrophils 6.6 thou/uL (1.40-6.50); %Basophils 0.5 % (0.0-1.0); %Eosinophils 2.4 % (0.0-10.0); %Lymphocytes 10.8 % (21.0-51.0); %Monocytes 5.6 % (0.0-10.0); %Neutrophils 80.8 % (42.0-75.0); Hemoglobin 8.5 g/dL (14.0-18.0); Mean Corpuscular HGB CONC 32.2 g/dL (32.0-36.0); Mean Corpuscular Hemoglobin 30.5 pg (27.0-31.0); Mean Corpuscular Volume 94.7 fl (78.0-98.0); Mean Platelet Volume 6.9 fL (7.4-10.4); Platelet Count 485 thou/uL (130-400); RBC Distribution Width 13.6 % (11.5-14.5); Red Blood Cell (RBC) Count 2.78 mill/uL (4.70-6.10); White Blood Cell (WBC) Count 8.2 thou/uL (4.8-10.8)
[2022-08-11 13:57] LABS: ALT (SGPT) 28 U/L (8-55); AST (SGOT) 22 U/L (5-34); Albumin 3.2 g/dL (3.4-4.8); Alkaline Phosphatase 44 U/L (40-110); Anion Gap 16 mmol/L (10-20); BUN (Urea Nitrogen) 23 mg/dL (8.4-25.7); Bilirubin, Total 0.4 mg/dL (0.2-1.2); Calc. Creatinine Clearance 0 mL/min (70-130); Calcium 8.9 mg/dL (7.8-10.44); Carbon Dioxide 28 mmol/L (23-31); Chloride 92 mmol/L (98-107); Estimated GFR 71; Globulin 3.3 g/dL (2.4-3.5); Glucose 117 mg/dL (80-115); Potassium 3.9 mmol/L (3.5-5.1); Protein, Total 6.5 g/dL (5.8-8.1); Sodium 132 mmol/L (136-145)
[2022-08-11] MEDS ORDERED: Morphine 4 MG/ML VIAL ONE (17:07)
== END 2022-08-11 17:19 ==
LOC: ERS 12:07
DX: K21.9 Gastro-esophageal reflux disease without esophagitis (principal); J18.1 Lobar pneumonia, unspecified organism; I10 Essential (primary) hypertension; Z79.899 Other long term (current) drug therapy
CPT/HCPCS: 36415; 71045; 74246; 80053; 85025; 93005; 96374; J2270; Q9967

== ENCOUNTER 2022-08-20 20:04 | Emergency (ER) | payer MEDICARE, OTHER | END 2022-08-20 21:45 | disposition home or self-care (01) | LOC: ERS 20:04 | DX: Z43.1 Encounter for attention to gastrostomy (principal); I10 Essential (primary) hypertension; Z79.899 Other long term (current) drug therapy | CPT/HCPCS: 43762 ==